=== PATIENT | female | born 1975 | race Caucasian/White ===

== ENCOUNTER → 2016-05-25 | Outpatient (REF) | payer BC | LOC: LAB 11:46 → EDSTATUS 11:49 → CLAB.HERRA 11:50 | PROVIDERS: ATTEND Family Medicine | DX: Z53.9 Procedure and treatment not carried out, unspecified reason (principal) ==

== ENCOUNTER → 2016-06-01 | Outpatient (REF) | payer BC | LOC: LAB 22:39 → CLAB.HERRA 22:39 → EDSTATUS 06-02 10:41 | PROVIDERS: ATTEND Family Medicine | DX: R19.7 Diarrhea, unspecified (principal) | CPT/HCPCS: 87324; 87449 ==